=== PATIENT | male | born 1985 | race Caucasian/White ===

== ENCOUNTER → 2017-09-06 16:42 | Outpatient (REF) | payer BC, SELFPAY ==
[2017-09-06 17:39] LABS: Thyroid Stimulating Hormone 2.75 uIU/ml (0.358-3.740)
[2017-09-06 17:46] LABS: Hemoglobin A1C 5.5 % (0.0-7.0)
== END ==
LOC: LAB 16:42
PROVIDERS: Visit Provider Internal Medicine
DX: R53.83 Other fatigue (principal); R73.9 Hyperglycemia, unspecified; Z83.3 Family history of diabetes mellitus
CPT/HCPCS: 83036; 84443

== ENCOUNTER → 2018-09-11 15:02 | Outpatient (CLI) | payer BC, SELFPAY ==
--- NOTE | 2018-09-11 15:09 | XR_ITS ---
XR chest 2V HISTORY: ITS.REASON: PERSISTANT COUGH ORDERING PHYSICIAN: Jareth Caldera PATIENT AGE: 33 years COMPARISON: 03/24/2013 FINDINGS: The cardiomediastinal silhouette and pulmonary vascularity are within normal limits. The lungs are clear without infiltrates, suspicious nodules, or pleural effusions. No acute bony abnormalities. IMPRESSION: Negative chest, no acute finding
== END ==
PROVIDERS: PCP Internal Medicine; Visit Provider Internal Medicine
DX: R05 Cough (principal)
CPT/HCPCS: 71046

== ENCOUNTER → 2019-01-30 08:26 | Outpatient (POV) | payer BC, SELFPAY | PROVIDERS: Visit Provider Dermatology | DX: Z00.00 Encounter for general adult medical examination without abnormal findings (principal) ==

== ENCOUNTER → 2019-04-09 15:23 | Outpatient (CLI) | payer BC, SELFPAY ==
[2019-04-09 16:01] LABS: Basophils # 0.1 K/mm3 (0-0.2); Basophils % 1.2 % (0.1-2.0); Eosinophils # 0.2 K/mm3 (0.0-0.4); Eosinophils % 2.8 % (0.1-12.0); Hematocrit 46.3 % (42.0-52.0); Hemoglobin 15.2 g/dL (14.1-18.0); Lymphocytes # 2.3 K/mm3 (0.7-4.5); Mean Corpuscular HGB Conc 32.8 g/dL (31.8-35.4); Mean Corpuscular Hemoglobin 29.1 pg (27.0-31.2); Mean Corpuscular Volume 88.7 fl (80-94); Mean Platelet Volume 7.3 fl (7.4-10.4); Monocytes # 0.5 K/mm3 (0.1-1.0); Monocytes % 6.1 % (1.7-9.3); Neutrophils # 4.6 K/mm3 (1.8-7.8); Platelet Count 278 K/mm3 (142-424); Red Blood Count 5.22 M/mm3 (4.60-6.20); Red Cell Distribution Width 12.9 % (11.5-17.5); White Blood Count 7.6 K/mm3 (4.8-10.8)
[2019-04-09 18:40] LABS: Erythrocyte Sedimentation Rate 15 mm/hr (0-15)
[2019-04-09 19:08] LABS: Anion Gap 16.1 mEq/L (5-15); Blood Urea Nitrogen 19 mg/dL (7-18); Calcium 8.9 mg/dL (8.5-10.1); Carbon Dioxide 25 mmol/L (21.0-32.0); Chloride 105 mmol/L (98-107); Creatinine,Serum 1.25 mg/dL (0.70-1.30); Estimated Glomerular Filt Rate 66 ml/min (>60); GFR (African American) 80 ML/MIN (>60); Glucose 94 mg/dL (74-106); Potassium 4.1 mmoL/L (3.5-5.1); Sodium 142 mmol/L (136-145)
[2019-04-09 20:54] LABS: C-Reactive Protein < 0.2 mg/dL (0.0-0.9)
[2019-04-11 15:30] LABS: Rapid Plasma Reagin Ab Titer Non Reactive (NonRea<1:1)
[2019-04-12 13:17] LABS: Treponema pallidum Ab (FTA-ABS Non Reactive (Non Reactive)
[2019-04-17 16:42] LABS: HLA-B27 Negative (.)
== END ==
PROVIDERS: Visit Provider Ophthalmology
DX: H20.13 Chronic iridocyclitis, bilateral (principal)
CPT/HCPCS: 36415; 80048; 85025; 85651; 86140; 86592; 86780; 86812

== ENCOUNTER → 2019-11-06 10:43 | Outpatient (POV) | payer BC, SELFPAY | PROVIDERS: Visit Provider Otolaryngology | DX: Z00.00 Encounter for general adult medical examination without abnormal findings (principal) ==

== ENCOUNTER → 2019-12-18 09:08 | Outpatient (POV) | payer BC, SELFPAY | PROVIDERS: Visit Provider Otolaryngology | DX: Z00.00 Encounter for general adult medical examination without abnormal findings (principal) ==

== ENCOUNTER 2020-07-02 19:27 | Emergency (ER) | payer OTHER, SELFPAY ==
[2020-07-02 19:40] VITALS: BP 147/85; PULSE 93; RESP 16; TEMP 37; O2SAT 98; BMI 33.9
[2020-07-02 19:45] VITALS: BP 140/82; PULSE 90; RESP 16; TEMP 36.6
--- NOTE | 2020-07-02 19:46 | HMH.EDUTC ---
[facility] [place] Dis[place] Clinical Impression: Sinusitis, Exposure to COVID-19 virus Disposition: Home, Self-Care Condition on Discharge: Good Instructions: DI for Sinusitis, Preventing the Spread of Coronavirus Discharge Instructions Additional Instructions: Drink plenty of fluids. Take tylenol for pain or fever. Return if you begin to have difficulty breathing. Follow up with your regular doctor. GO TO THE ER FOR ANY WORSENING SYMPTOMS Prescriptions: Amoxicillin [Amoxicillin 500mg Tab] 500 mg PO TID 10 Days #30 tab Transmission Status: Received by [facility] Referrals: Jareth Caldera [Primary Care Provider] - Forms: Work/School Release Time of Disposition: 19:56 Medical Decision Making - Medical Records Medical records reviewed: No: I reviewed the patient's medical records. - Luc Inquiry Pt receiving controlled substance: No Vital Signs: 07/02/20 19:40 07/02/20 19:45 Temperature 98.6 F 98 F Temperature Source Oral Pulse Rate 90 Pulse Rate [Right] 93 H Respiratory Rate 16 16 Blood Pressure 140/82 Blood Pressure [Right Arm] 147/85 H Blood Pressure Mean [Right Arm] 105 Blood Pressure Source [Right Arm] Automatic Cuff Blood Pressure Position [Right Arm] Sitting 02 Sat by Pulse Oximetry 98 Oxygen Delivery Method Room Air [facility] [place] HPI - General Stated complaint: COUGH, Time Seen by Provider: 07/02/20 19:47 Mode of Arrival: Ambulatory Source of Information: Spouse Limitations: No Limitations Description of Symptoms (Recalled from Triage Doc. by RN): pt has a runny nose and loss of taste. HEENT Symptoms (Recalled from RN notes): Yes (loss of taste and runny nose) Resp Symptoms (Recalled from RN notes): No Skin Symptoms (Recalled from RN notes): No MS Symptoms (Recalled from RN notes): No Functional Status (Recalled from RN notes): na - History of Present Illness Provider Complaint: He states that since yesteday he has has a runny nose and a cough. Today he has lost his sense of taste. He denies any fever/chills - Related Data Home Medications Medication Instructions Recorded Confirmed ustekinumab 90 mg/mL subcutaneous 90 mg SQ Q8W 05/14/19 07/20/19 syringe Previous Rx's Medication Instructions Recorded fluticasone propionate 50 1 spray INTRANASAL DAILY #15.8 ml 07/20/19 mcg/actuation nasal spray,suspension meclizine 25 mg tablet 25 mg PO DAILY PRN #10 tab 07/20/19 Amoxicillin [Amoxicillin 500mg Tab] 500 mg PO TID 10 Days #30 tab 07/02/20 Allergies Allergy/AdvReac Type Severity Reaction Status Date / Time metoclopramide [From REGLAN] Allergy Unknown Verified 07/20/19 10:34 - Worker's Comp Is this a Worker's Comp case?: No [facility] History - Hepatitis A Screen Drug use history?: No High risk sexual behaviors?: No History of sexually transmitted infection?: No Currently employed?: No Childcare worker?: No Do you have indoor plumbing?: Yes Do you have electricity?: Yes Attestation statement:: This patient has been screened for Hepatitis A risk factors. I have reviewed the patient's past medical history: Yes Medical History: Reports:: Gastroesophageal Reflux Disease(GERD) Denies:: Cancer, Diabetes Mellitus Type 1, Diabetes Mellitus Type 2, MRSA Other Medical History: Reports: Other Comment: Crohn's Disease Laterality Cases: Left: Arthroscopy Shoulder Other Surgeries: Yes: No Previous Surgery Amputation: No Fractures: No - Social History Smoking Status: Never smoker Alcohol Intake: never Substance Use Type: inhalants Occupational Status: employed Housing: house Household Members: family Family Hx:: No significant family history ROS Obtained: Yes All systems reviewed & no additional complaints - Constitutional Constitutional: Denies body ache, Denies chills, Denies fever(s), Reports poor appetite, Reports malaise - Eyes Eyes: Denies eye discharge - ENT Ears, Nose, Mouth, and Throat: Reports as per HPI - Cardiovascul
--- NOTE | 2020-07-03 08:45 | PC.NURSE ---
patient notified of positive covid results
== END 2020-07-02 20:05 | disposition home or self-care (01) ==
LOC: UTC 19:32
PROVIDERS: Emergency Provider Nurse Practitioner Family; PCP Internal Medicine
DX: J32.9 Chronic sinusitis, unspecified (principal); R43.9 Unspecified disturbances of smell and taste; R09.89 Other specified symptoms and signs involving the circulatory and respiratory systems; Z20.822 Contact with and (suspected) exposure to COVID-19
CPT/HCPCS: 99202; G0463; U0003

== ENCOUNTER → 2020-08-05 10:44 | Outpatient (POV) | payer OTHER, SELFPAY | PROVIDERS: Visit Provider Otolaryngology | DX: Z00.00 Encounter for general adult medical examination without abnormal findings (principal) ==

== ENCOUNTER 2021-10-22 09:24 | Emergency (ER) | payer BC, SELFPAY ==
[2021-10-22 09:34] VITALS: BP 122/85; PULSE 104; RESP 16; TEMP 36.7; O2SAT 96; BMI 38.7
[2021-10-22 09:53] LABS: UTC Influenza A Antigen Negative (Negative); UTC Influenza B Antigen Negative (Negative)
--- NOTE | 2021-10-22 09:58 | HMH.EDUTC ---
[facility] [place] Clinical Impression: Viral syndrome Sinusitis Qualifiers: Sinusitis location: unspecified location Chronicity: acute Recurrence: non-recurrent Qualified Code(s): J01.90 - Acute sinusitis, unspecified Disposition: Home, Self-Care Condition on Discharge: Good Instructions: DI for Sinusitis Prescriptions: methylPREDNISolone [Medrol] 4 mg PO DIRECTED 6 Days #21 packet Transmission Status: Pending to [facility] guaiFENesin [Mucinex 600mg tablet] 1 - 2 tab PO BIDP PRN #30 tab PRN Reason: Congestion Transmission Status: Pending to [facility] Azithromycin [Z-Rafita 250mg Tab*] 250 mg PO UD DOSE PK #6 tab Transmission Status: Pending to [facility] Referrals: Jareth Caldera MD [Primary Care Provider] - Forms: Work/School Release Time of Disposition: 10:07 Medical Decision Making - Medical Records Medical records reviewed: No: I reviewed the patient's medical records. - Luc Inquiry Pt receiving controlled substance: No Vital Signs: 10/22/21 09:34 Temperature 98.1 F Temperature Source Oral Pulse Rate [Left Radial] 104 H Respiratory Rate 16 Blood Pressure [Right Arm] 122/85 Blood Pressure Mean [Right Arm] 97 02 Sat by Pulse Oximetry 96 - Lab Data Lab Results 10/22/21 09:43: Influenza Type A Ag Negative, Influenza Type B Ag Negative Orders (Tests/Meds): ORDERS Category Date Time Status Covid-19 Nasal PCR ([facility]) Routine Lab 10/22/21 09:43 Received [facility] [place] - General Stated complaint: sinus congestion, fever Time Seen by Provider: 10/22/21 09:58 Description of Symptoms (Recalled from Triage Doc. by RN): patient comes in today for sinus issues, fever and body aches.symptoms began tuesday HEENT Symptoms (Recalled from RN notes): Yes Resp Symptoms (Recalled from RN notes): No Skin Symptoms (Recalled from RN notes): No MS Symptoms (Recalled from RN notes): No Functional Status (Recalled from RN notes): wnl - History of Present Illness Provider Complaint: He states that around 1 week ago he started having sinus congestion. His symptoms have worsened since then. Last night he started having a fever up to 101.5. He has sinus congestion, but no head congestion. He denies any known exposure to covid-19 or strep throat. - Related Data Home Medications Medication Instructions Recorded Confirmed ustekinumab 90 mg/mL subcutaneous 90 mg SQ Q8W 05/14/19 07/20/19 syringe Previous Rx's Medication Instructions Recorded fluticasone propionate 50 1 spray INTRANASAL DAILY #15.8 ml 07/20/19 mcg/actuation nasal spray,suspension meclizine 25 mg tablet 25 mg PO DAILY PRN #10 tab 07/20/19 Amoxicillin [Amoxicillin 500mg Tab] 500 mg PO TID 10 Days #30 tab 07/02/20 Azithromycin [Z-Rafita 250mg Tab*] 250 mg PO UD DOSE PK #6 tab 10/22/21 guaiFENesin [Mucinex 600mg tablet] 1 - 2 tab PO BIDP PRN #30 tab 10/22/21 methylPREDNISolone [Medrol] 4 mg PO DIRECTED 6 Days #21 10/22/21 packet Allergies Allergy/AdvReac Type Severity Reaction Status Date / Time metoclopramide [From REGLAN] Allergy Unknown Verified 10/22/21 09:40 - Worker's Comp Is this a Worker's Comp case?: No [facility] History - Hepatitis A Screen Attestation statement:: This patient has been screened for Hepatitis A risk factors. I have reviewed the patient's past medical history: Yes Medical History: Reports:: Gastroesophageal Reflux Disease(GERD) Denies:: Cancer, Diabetes Mellitus Type 1, Diabetes Mellitus Type 2, MRSA Other Medical History: Reports: Other Comment: Crohn's Disease Laterality Cases: Left: Arthroscopy Shoulder Other Surgeries: Yes: No Previous Surgery Amputation: No Fractures: No - Social History Smoking Status: Never smoker Alcohol Intake: never Substance Use Type: inhalants Occupational Status: employed Housing: house Household Members: family Family Hx:: No significant family history ROS Obtained: Yes All systems reviewed & no additional compl
[2021-10-22 10:12] VITALS: BP 122/85; PULSE 104; RESP 16; TEMP 36.7
== END 2021-10-22 10:12 | disposition home or self-care (01) ==
PROVIDERS: Emergency Provider Nurse Practitioner Family; PCP Internal Medicine
DX: U07.1 COVID-19 (principal); J02.9 Acute pharyngitis, unspecified; R09.81 Nasal congestion; Z88.8 Allergy status to other drugs, medicaments and biological substances
CPT/HCPCS: 87804; 99212; C9803; G0463; U0003; U0005

== ENCOUNTER → 2022-03-31 06:18 | Outpatient (CLI) | payer BC, SELFPAY ==
--- NOTE | 2022-03-31 06:35 | CT_ITS ---
FINAL REPORT TECHNIQUE: Axial CT images were performed from the lung bases through the pubic symphysis. Coronal reformats were submitted and reviewed. This study was performed with techniques to keep radiation doses as low as reasonably achievable (ALARA). Individualized dose reduction techniques using automated exposure control or adjustment of mA and/or kV according to the patient's size were employed. CLINICAL HISTORY: LT GROIN PAIN started last tuesday after lifting something heavy FINDINGS: Abdomen: There is a calcified granuloma in the right middle lobe The gallbladder is present. There is mild fatty infiltration of the liver. The spleen and pancreas are unremarkable. There are no adrenal masses. There is no nephrolithiasis. There is no hydronephrosis. Pelvis: The appendix is unremarkable. There are no distal ureteral stones. The urinary bladder is unremarkable. IMPRESSION: No acute intra-abdominal process. Reviewed, Interpreted and Dictated by Aristides Squires MD Transcribed by Jaxon Post Authenticated and [facility]
== END ==
PROVIDERS: PCP Internal Medicine; Visit Provider Internal Medicine
DX: R10.32 Left lower quadrant pain (principal)
CPT/HCPCS: 74176

== ENCOUNTER → 2022-10-29 14:18 | Outpatient (CLI) | payer BC, SELFPAY | PROVIDERS: PCP Internal Medicine; Visit Provider Internal Medicine | DX: G47.30 Sleep apnea, unspecified (principal); R06.83 Snoring; R40.0 Somnolence; R53.83 Other fatigue; E66.9 Obesity, unspecified; Z68.34 Body mass index [BMI] 34.0-34.9, adult | CPT/HCPCS: G0399 ==

== ENCOUNTER 2023-05-06 13:27 | Outpatient (CLI) | payer BC, SELFPAY ==
[2023-05-06 14:18] LABS: Basophils # 0.1 K/mm3 (0-0.2); Basophils % 1.2 % (0.1-2.0); Eosinophils # 0.1 K/mm3 (0.0-0.4); Eosinophils % 2.1 % (0.1-12.0); Hematocrit 45.3 % (42.0-52.0); Hemoglobin 15.4 g/dL (14.1-18.0); Lymphocytes # 2.4 K/mm3 (0.7-4.5); Mean Corpuscular Hemoglobin 29.7 pg (27.0-31.2); Mean Corpuscular Volume 87.3 fl (80-94); Mean Platelet Volume 7.9 fl (7.4-10.4); Monocytes # 0.5 K/mm3 (0.1-1.0); Monocytes % 7.9 % (1.7-9.3); Neutrophils # 3.3 K/mm3 (1.8-7.8); Neutrophils % 50.9 % (37.0-80.0); Platelet Count 309 K/mm3 (142-424); Red Blood Count 5.19 M/mm3 (4.60-6.20); White Blood Count 6.4 K/mm3 (4.8-10.8)
[2023-05-06 14:40] LABS: Amylase 52 U/L (30-110)
== END 2023-05-06 23:59 ==
LOC: LAB.DROPOF 13:28
PROVIDERS: PCP Internal Medicine; Visit Provider Internal Medicine
DX: R10.12 Left upper quadrant pain (principal); R10.13 Epigastric pain
CPT/HCPCS: 82150; 85025

== ENCOUNTER 2023-07-13 12:21 | Day surgery (SDC) | payer BC, SELFPAY ==
[2023-06-20 10:11] VITALS: BMI 38.0
[2023-07-13 12:54] VITALS: BP 125/75; PULSE 65; RESP 18; TEMP 36.8; O2SAT 100
[2023-07-13] MEDS: LACTATED RINGERS 1000ML 1,000 ML 25 ML IV (12:58)
--- NOTE | 2023-07-13 13:45 | EXP.ANES.CKL ---
[facility] Disclaimer: The information contained in this section may have been updated after the patient was seen, as this information can be updated by other users. Medical History Elevated cholesterol Epigastric abdominal pain Abdominal pain Surgical History Hx of rotator cuff surgery Family History Other Cancer Diabetes Family history of diabetes mellitus type II Heart attack Social History Smoking Status: Never smoker alcohol intake: current substance use type: denies use current occupational status: employed Travel in the last 8 weeks: None household members: family housing: house marital status: [facility] Anesthesia Checklist Patient Identification Patient Identification: Arm Band and Verbal (Name & ) Structural Data Admitted From: Home Planned Operative Procedure/s: EGD Consent for Planned Operative Procedure(s) Verified: Yes NPO Status Verified Time NPO: 00:00 Additional verifications Anesthesia Reactions: No Airway Assessment Mallampati Score:: Class III C-Spine Mobility Assessed: Yes TMJ Mobility Assessed: Yes Dentition: Good Dentition Neurological Assessment Level of Consciousness: Awake Hx Seizures: No Numbness or tingling in extremities: No Anesthesia Plan Anesthesia Risk discussed: Yes Anesthesia Plan: Verified ASA Class: II Anesthesia Type: MAC
--- NOTE | 2023-07-13 13:59 | P.PNANES_ITS ---
[facility] Disclaimer: The information contained in this section may have been updated after the patient was seen, as this information can be updated by other users. Medical History Elevated cholesterol Epigastric abdominal pain Abdominal pain Surgical History Hx of rotator cuff surgery Family History Other Cancer Diabetes Family history of diabetes mellitus type II Heart attack Social History Smoking Status: Never smoker alcohol intake: current substance use type: denies use current occupational status: employed Travel in the last 8 weeks: None household members: family housing: house marital status: [facility] Anesthesia Checklist Patient Identification Patient Identification: Arm Band Structural Data Admitted From: Home Planned Operative Procedure/s: EGD Consent for Planned Operative Procedure(s) Verified: Yes Verified Documents: Surgical Consent and History and Physical NPO Status Verified Time NPO: 00:00 Additional verifications Anesthesia Reactions: No Airway Assessment Mallampati Score:: Class II C-Spine Mobility Assessed: Yes TMJ Mobility Assessed: Yes Dentition: Good Dentition Neurological Assessment Level of Consciousness: Awake and Alert Anesthesia Plan Anesthesia Risk discussed: Yes Anesthesia Plan: Verified ASA Class: II Anesthesia Type: MAC
[2023-07-13 14:28] VITALS: O2SAT 95
--- NOTE | 2023-07-13 14:38 | P.PCN_ITS ---
Procedure: Date: 07/13/23 Patient Date of :: 1985 Procedure Performed:: EGD Indications:: The patient is a 37-year-old who presents for EGD evaluation of left upper quadrant abdominal pain. The abdominal pain has been present since March. The patient has a history of Crohn's disease treated with Stelara. The patient is managed by Dr. Siobhan Snow in gastroenterology in [place]. Performing Provider:: Andres Gaffney MD Referring Provider:: Jareth Caldera MD Sedation:: See RN records Procedure:: The gastroscope was gently passed through the incisoral orifice into the oral cavity and under direct visualization the esophagus was intubated. The endoscope was passed down the esophagus, through the stomach, and into the duodenum. Color, texture, mucosa, and anatomy of the esophagus, stomach, and duodenum were carefully examined with the scope. Findings:: The esophagus appeared normal. The Z-line was irregular and measured at 40 cm. There was mild inflammation noted in the stomach characterized by erythema. Biopsies were taken from the gastric antrum and body. Examined duodenum appeared normal. Biopsies were obtained with a cold forceps for histology. Recommendations:: Await pathology results Follow-up with referring provider as previously scheduled Keep follow-up also with patient's primary advertising operations manager for management of Crohn's disease Complications:: None Estimated blood obtained (mL): 0 Colonoscopy Component Colonoscopy Component Was a colonoscopy performed during today's procedure?: No
[2023-07-13 14:39] VITALS: BP 120/69; PULSE 88; RESP 17; TEMP 36.5; O2SAT 94
[2023-07-13 14:49] VITALS: BP 123/73; PULSE 77; RESP 18; O2SAT 94
[2023-07-13 14:59] VITALS: BP 110/67; PULSE 84; RESP 18; O2SAT 97
[2023-07-13 15:10] VITALS: BP 109/75; PULSE 77; RESP 18; O2SAT 98
== END 2023-07-13 15:12 | disposition home or self-care (01) ==
PROVIDERS: PCP Internal Medicine; Visit Provider Internal Medicine
PROC: 0DJ08ZZ Inspection of Upper Intestinal Tract, Via Natural or Artificial Opening Endoscopic (ICD-10-PCS; CPT 43235; principal; 2023-07-13 13:30)
DX: R10.12 Left upper quadrant pain (principal); Z87.19 Personal history of other diseases of the digestive system; K29.50 Unspecified chronic gastritis without bleeding
CPT/HCPCS: 43239

== ENCOUNTER 2023-08-05 07:29 | Outpatient (CLI) | payer BC, SELFPAY ==
--- NOTE | 2023-08-05 07:35 | CT_ITS ---
FINAL REPORT TECHNIQUE: Axial CT images of the abdomen and pelvis were obtained before and after the administration of IV contrast. Oral contrast was administered.This study was performed with techniques to keep radiation doses as low as reasonably achievable (ALARA). Individualized dose reduction techniques using automated exposure control or adjustment of mA and/or kV according to the patient''s size were employed. CLINICAL HISTORY: CROHNS DISEASE COMPARISON: 03/31/2022 FINDINGS: Abdomen: The lung bases are clear. The heart is normal in size. There is fatty infiltration of the liver. The spleen is unremarkable. No adrenal masses present. The pancreas has an unremarkable appearance. The kidneys enhance normally. The aorta is normal in caliber. There is no free fluid or adenopathy. Precontrast images demonstrate no evidence of nephrolithiasis. Pelvis: The appendix is normal. There are multiple fluid-filled bowel loops in a nonspecific pattern. There is no localized bowel wall thickening. The urinary bladder is unremarkable. There is no evidence of mass or adenopathy. IMPRESSION: Multiple fluid-filled bowel loops in a nonspecific pattern, enteritis is not excluded. Reviewed, Interpreted and Dictated by Yazan Lopes III, MD Transcribed by Mana Hdz Authenticated and [facility]
[2023-08-05] MEDS: BREEZA FLAVORED BEVERAGE 500ML BOTTLE (RAD USE ONLY) 1500 ML PO (09:04)
[2023-08-05] MEDS: SODIUM CHLORIDE 0.9% 10ML SYR (RAD ONLY) 10 ML IV (09:04)
[2023-08-05] MEDS: 0.9 % SODIUM CHLORIDE 50 ML VIAL IV (09:04)
[2023-08-05] MEDS: IOPAMIDOL-370 (76%);100ML BOTTLE 100 ML IV (09:04)
== END 2023-08-05 23:59 ==
LOC: RAD 07:30
PROVIDERS: PCP Internal Medicine; Visit Provider Internal Medicine Gastroenterology
DX: K50.818 Crohn's disease of both small and large intestine with other complication (principal)
CPT/HCPCS: 74177; Q9967

== ENCOUNTER 2024-04-07 09:59 | Emergency (ER) | payer OTHER, SELFPAY ==
[2024-04-07 10:15] VITALS: BP 128/89; PULSE 60; RESP 20; TEMP 36.6; O2SAT 98; BMI 39.9
--- NOTE | 2024-04-07 11:02 | ED_ITS ---
Discharge Plan Disposition Patient Disposition: Home, Self-Care Condition: Good Prescriptions Prescriptions: New colchicine 0.6 mg tablet 0.6 mg PO BID Qty: 30 0RF Rx Instructions: Take 2 tablets then take 1 table at hour later. then take one tablet twice a day for 2 days after resolution of the flare. diclofenac potassium 50 mg tablet 50 mg PO TID Qty: 30 0RF No Action Stelara 90 mg/mL syringe 90 mg SQ Q8W prednisone 10 mg tablet 10 mg PO DAILY Patient Comments: TAKE 4 TABLETS BY MOUTH IN THE MORNING ONCE DAILY FOR 5 DAYS THEN 3 IN THE MORNING ONCE DAILY FOR 2 DAYS THEN 2 IN THE MORNING ONCE DAILY FOR 2 DAYS THEN 1 IN THE MORNING ONCE DAILY FOR 2 DAYS THEN STOP dexlansoprazole 60 mg capsule,biphase delayed releas 60 mg PO DAILY Patient Comments: TAKE 1 CAPSULE BY MOUTH ONCE DAILY Voquezna 20 mg tablet 20 mg PO DAILY Patient Comments: TAKE 1 TABLET BY MOUTH ONCE DAILY Referrals Follow up/Referrals: Jareth Caldera MD [Primary Care Provider] - See instructions Activity Restrictions/Add. Instructions Additional Instructions/Restrictions: Take medication as prescribed. Increase fluids. Follow up with PCP if symptoms persist or worsen. Clinical Impressions Clinical Impression: Gout Qualifiers: Gout site: toe Gout etiology: unspecified cause Chronicity: acute Instructions Patient Instructions: DI for Gout, Higher Vitamin C Intake Associated With Lower Risk of Gout, Gout (Alternative Therapy) Print Language Print Language: Martiniquais Discharge ED Provider: Liz Sandoval [facility] [place] HPI General Stated complaint: left foot pain, no accident Mode of Arrival: Ambulatory Source of Information: Patient Limitations: No Limitations Time Seen by Provider: 04/07/24 11:02 Description of Symptoms (Recalled from Triage Doc. by RN): PATIENT C/O PAIN TO LEFT GREAT TOE X 6 DAYS, POSSIBLE GOUT FLARE-UP HEENT Symptoms (Recalled from RN notes): No Resp Symptoms (Recalled from RN notes): No Skin Symptoms (Recalled from RN notes): No MS Symptoms (Recalled from RN notes): Yes Functional Status (Recalled from RN notes): WNL Related Data Home Medications ?Medication ?Instructions ?Recorded ?Confirmed ustekinumab 90 mg/mL subcutaneous 90 mg SQ Q8W 05/14/19 04/07/24 syringe (Stelara) dexlansoprazole 60 mg 60 mg PO DAILY 04/07/24 04/07/24 capsule,biphase delayed release prednisone 10 mg tablet 10 mg PO DAILY 04/07/24 04/07/24 vonoprazan 20 mg tablet (Voquezna) 20 mg PO DAILY 04/07/24 04/07/24 Previous Rx's ?Medication ?Instructions ?Recorded colchicine 0.6 mg tablet 0.6 mg PO BID #30 tabs 04/07/24 diclofenac potassium 50 mg tablet 50 mg PO TID #30 tabs 04/07/24 Allergies Allergy/AdvReac Type Severity Reaction Status Date / Time metoclopramide (From REGLAN) Allergy Unknown Verified 03/14/24 13:09 Worker's Comp Is this a Worker's Comp case?: No [facility] Disclaimer: The information contained in this section may have been updated after the patient was seen, as this information can be updated by other users. Medical History Elevated cholesterol Epigastric abdominal pain Abdominal pain Surgical History Hx of rotator cuff surgery Family History Other Cancer Diabetes Family history of diabetes mellitus type II Heart attack Social History Smoking Status: Never smoker alcohol intake: current alcohol intake frequency: holidays/special occasions only substance use type: denies use current occupational status: employed Travel in the last 8 weeks: None household members: family housing: house marital status: ROS Obtained: Yes All systems reviewed & no additional complaints except as documented Constitutional Constitutional: Reports system reviewed and no additional complaints, except as documented Eyes Eyes: Reports system reviewed and no additional complaints, except as documented ENT Ears, Nose, Mouth, and Throat: Reports system reviewed and no additional complaints, except as documented Cardiovascular Cardiovascular: Reports system reviewed and no additional complaints, except as documented Respiratory Respiratory: Reports system reviewed and no additional complaints, except as documented Gastrointestinal Gastrointestingal: Reports system reviewed and no additional complaints, except as documented Genitourinary Male Genitourinary: Reports system reviewed and no additional complaints, except as documented Musculoskeletal Musculoskeletal: Reports system reviewed and no additional complaints, except as documented, Reports abnormal gait, Reports arthralgias, Reports joint stiffness, Reports joint swelling and Reports limited range of motion Integumentary/Breasts Skin/Breast: Reports system reviewed and no additional complaints, except as documented Neurologic Neurologic: Reports system reviewed and no additional complaints, except as documented and Reports abnormal gait Endocrine Endocrine: Reports system reviewed and no additional complaints, except as documented Hematologic/Lymphatic Henatologic/Lymphatic: Reports system reviewed and no additional complaints, except as documented Allergic/Immunologic Allergic/Immunologic: Reports system reviewed and no additional complaints, except as documented Physical Exam General General appearance: alert and in no apparent distress Head Head exam: atraumatic and normocephalic Eye Eye exam: Present normal appearance ENT ENT exam: Present normal exam and normal oropharynx Neck Neck exam: Present normal inspection Chest Chest inspection: Present normal inspection and symmetric chest wall rise Respiratory Respiratory exam: Present normal lung sounds bilaterally Cardiovascular Cardiovascular exam: Present regular rate and normal rhythm Abdominal Exam Abdominal exam: Present soft Extremities Exam Extremities exam: Present normal capillary refill, edema and joint swelling Expanded Lower Extremity Exam Left: Hip/Pelvis exam: Present normal inspection Upper leg exam: Present normal inspection Knee exam: Present normal inspection Lower leg exam: Present normal inspection Ankle exam: Present normal inspection Foot/toe exam: Present tenderness (left great toe ) and swelling (left great toe) Top foot image: 2 1. swelling and tenderness noted Neurovascular/Tendon exam: Present normal capillary refill Gait: observed and limited by pain Back Exam Back exam: Present normal inspection Neurological Exam Neurological exam: Present alert and oriented X3 Psychiatric Psychiatric exam: Present normal affect and normal mood Skin Skin exam: Present warm, dry and intact Lymphatic Lymphatic Findings: no adenopathy Medical Decision Making Medical Records Screening: Per USPSTF and CDC recommendations, given the prevalence of disease in our region, it is our hospital?s policy to screen for HIV and viral Hepatitis for all patients aged 18 and over and those with ongoing risk factors. Luc Inquiry Pt receiving controlled substance: No Luc was queried for this patient: No Vital Signs: 04/07/24 10:15 Temperature 97.9 F Temperature Source Oral Pulse Rate [Left Brachial] 60 Respiratory Rate 20 Blood Pressure [Left Arm] 128/89 Blood Pressure Mean [Left Arm] 102 Blood Pressure Source [Left Arm] Automatic Cuff Blood Pressure Position [Left Arm] Sitting 02 Sat by Pulse Oximetry 98 Oxygen Delivery Method Room Air
[2024-04-07 11:20] VITALS: BP 128/89; PULSE 60; RESP 20; TEMP 36.6; O2SAT 98
== END 2024-04-07 11:23 | disposition home or self-care (01) ==
PROVIDERS: Emergency Provider Nurse Practitioner Family; PCP Internal Medicine
DX: M10.9 Gout, unspecified (principal); M79.672 Pain in left foot; M79.675 Pain in left toe(s)
CPT/HCPCS: 99212; G0381

== ENCOUNTER 2025-03-22 12:55 | Outpatient (RCR) | payer BC, SELFPAY | END 2025-03-22 23:59 | disposition home or self-care (01) | LOC: PT 12:55 | PROVIDERS: PCP Internal Medicine; Visit Provider Podiatrist Foot & Ankle Surgery | DX: S86.011D Strain of right Achilles tendon, subsequent encounter (principal); X58.XXXD Exposure to other specified factors, subsequent encounter | CPT/HCPCS: 97162 ==

== ENCOUNTER 2025-04-24 08:00 | Outpatient (RCR) | payer BC, SELFPAY | END 2025-04-24 23:59 | disposition home or self-care (01) | LOC: PT 08:00 | PROVIDERS: PCP Internal Medicine; Visit Provider Podiatrist Foot & Ankle Surgery | DX: S86.011D Strain of right Achilles tendon, subsequent encounter (principal); M79.671 Pain in right foot; M25.571 Pain in right ankle and joints of right foot | CPT/HCPCS: 97110 ==